=== PATIENT | female | born 1965 | race Two or more races ===

== ENCOUNTER 2024-07-09 14:24 | Inpatient (IN) | payer OTHER ==
[~2024-07-09] VITALS: Ht 152.4 cm; Wt 76.2 kg
--- NOTE | 2024-07-09 14:53 | ED.PDOC ---
HPI (NEURO) HPI Comments 59 Y F brought in by son with PMHX of CVA presents to ED with CC of left sided facial drop. Patient's son relays, that he was driving patient back up from [place] when he noticed a left sided facial drop and right arm weakness at 1400 today (07/09/23). Patient's son states, that patient did have a stroke last week. Patient denies headache, fatigue, slurred speech, or loss of vision. 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: Denies all ACCOUNT COORDINATOR Hx Family History Family History: Unknown Social History Smoker: Non-Smoker Alcohol: Denies ETOH Use Drugs: Denies Drug Use Lives In: Home Constitutional: denies: chills, diaphoresis, fatigue, fever, malaise, sweats, weakness, others EENTM: denies: blurred vision, double vision, ear bleeding, ear discharge, ear drainage, ear pain, ear ringing, eye pain, eye redness, hearing loss, mouth pain, mouth swelling, nasal discharge, nose bleeding, nose congestion, nose pain, photophobia, tearing, throat pain, throat swelling, voice changes, others Respiratory: denies: cough, hemoptysis, orthopnea, SOB at rest, shortness of breath, SOB with excertion, stridor, wheezing, others Cardiovascular: denies: chest pain, dizzy spells, diaphoresis, Dyspnea on exertion, edema, irregular heart beat, left arm pain, lightheadedness, palpitations, PND, syncope, others Gastrointestinal: denies: abdomen distended, abdominal pain, blood streaked bowels, constipated, diarrhea, dysphagia, difficulty swallowing, hematemesis, melena, nausea, poor appetite, poor fluid intake, rectal bleeding, rectal pain, vomiting, others Genitourinary: denies: abnormal vagina bleeding, burning, dyspareunia, dysuria, flank pain, frequency, hematuria, incontinence, pain, , vagina discharge, urgency, others Neurological: reports: right sided weakness, others (LEFT SIDED FACIAL DROP); denies: dizziness, fainting, headache, left sided numbness, left sided weakness, numbness, paresthesia, pre-existing deficit, right sided numbness, seizure, speech problems, tingling, tremors, weakness Musculoskeletal: denies: back pain, gout, joint pain, joint swelling, muscle pain, muscle stiffness, neck pain, others Integumetry: denies: bruises, change in color, change in hair/nails, dryness, laceration, lesions, lumps, rash, wounds, others Hematologic/Lymphatic: denies: anemia, blood clots, easy bleeding, easy bruising, swollen glands, others Endocrine: denies: excessive hunger, excessive sweating, excessive thirst, excessive urination, flushing, intolerance to cold, intolerance to heat, unexplained weight gain, unexplained weight loss, others Psychiatric: denies: anxiety, bipolar disorder, depression, hopeless, panic disorder, schizophrenia, sleepless, suicidal, others All Other Systems: Reviewed and Negative Physical Exam General Appearance: Moderate Distress HEENT: Normal ENT Inspection, Pharynx Normal, TMs Normal Neck: Full Range of Motion, Non-Tender, Normal, Normal Inspection Respiratory: Chest Non-Tender, Lungs Clear, No Accessory Muscle Use, No Respiratory Distress, Normal Breath Sounds Cardiovascular: No Edema, No JVD, No Murmur, No Gallop, Normal Peripheral Pulses, Regular Rate/Rhythm Breast Exam: Deferred Gastrointestinal: No Organomegaly, Non Tender, No Pulsatile Mass, Normal Bowel Sounds, Soft Genitalia: Deferred Pelvic: Deferred Rectal: Deferred Extremities: No calf tenderness, Normal capillary refill, Normal inspection, Normal range of motion, Non-tender, No pedal edema Musculoskeletal : Apperance: Normal Neurologic: Alert, whanau support worker II-XII nml as Tested, Motor Weakness (Right-sided upper and lower extremity weakness), Normal Mood, No Sensory Deficits Cerebellar Function: Unable to Test Reflexes: Normal Skin: Dry, Normal Color, Warm Lymphatic: No Adenopathy Was a procedure done? Was a procedure done?: No Differential Diagnosis (SZ) Seizure: N/A CVA: Echols's Palsy, CVA, TIA General Weakness: CVA, TIA X-Ray, Labs, Meds, VS Vital Signs Date Time Temp Pulse Resp B/P (MAP) Pulse Ox O2 Delivery O2 Flow Rate FiO2 07/09/24 18:00 99 17 101/50 (67) 97 07/09/24 17:19 96 18 99 Nasal Cannula* 2 28 07/09/24 17:00 97 17 112/50 (70) 90 07/09/24 16:00 98 17 127/52 (77) 90 07/09/24 15:17 99.5 103 17 126/58 (80) 92 99.5 07/09/24 14:40 104 07/09/24 14:35 98.4 104 20 115/60 (78) 97 Lab Test 07/09/24 15:15 07/09/24 14:33 Range/Units White Blood Count 10.5 4.4-10.8 10^3/uL Red Blood Count 3.61 L 4.0-5.20 10^6/uL Hemoglobin 12.1 L 12.2-16.2 g/dL Hematocrit 36.6 36.0-46.0 % Mean Corpuscular Volume 101.3 H 80.0-100.0 fL Mean Corpuscular Hemoglobin 33.4 H 28.0-32.0 pg Mean Corpuscular Hemoglobin Concent 33.0 32.0-36.0 g/dL Red Cell Distribution Width 19.4 H 11.8-14.3 % Platelet Count 318 140-450 10^3/uL Mean Platelet Volume 7.7 6.9-10.8 fL Neutrophils (%) (Auto) 89.2 H 37.0-80.0 % Lymphocytes (%) (Auto) 5.8 L 10.0-50.0 % Monocytes (%) (Auto) 3.6 0.0-12.0 % Eosinophils (%) (Auto) 1.1 0.0-7.0 % Basophils (%) (Auto) 0.3 0.0-2.0 % Neutrophils # (Auto) 9.4 H 1.6-8.6 10 ^3/uL Lymphocytes # (Auto) 0.6 0.4-5.4 10 ^3/uL Monocytes # (Auto) 0.4 0-1.3 10 ^3/uL Eosinophils # (Auto) 0.1 0-0.8 10 ^3/uL Basophils # (Auto) 0 0-0.2 10 ^3/uL Nucleated Red Blood Cells 0.1 % Prothrombin Time 13.5 H 9.3-11.8 sec Prothrombin Time INR 1.31 H 0.9-1.15 Activated Partial Thromboplast Time 30.3 24.5-34.5 SEC Sodium Level 137 136-145 mmol/L Potassium Level 5.1 3.5-5.1 mmol/L Chloride Level 106 98-107 mmol/L Carbon Dioxide Level 23 20-31 mmol/L Anion Gap 8 5-15 Blood Urea Nitrogen 26 H 9-23 mg/dL Creatinine 1.20 H 0.550-1.02 mg/dL Glomerular Filtration Rate Calc 52 >90 mL/min BUN/Creatinine Ratio 21.7 H 10.0-20.0 Serum Glucose 228 H 74-106 mg/dL Calcium Level 8.7 8.7-10.4 mg/dL Magnesium Level 2.0 1.6-2.6 mg/dL Total Bilirubin 0.4 0.2-1.0 mg/dL Aspartate Amino Transferase (AST) 145 H 13-40 U/L Alanine Aminotransferase (ALT) 180 H 7-40 U/L Alkaline Phosphatase 194 H 46-116 U/L Troponin I High Sensitivity 6 </=34 ng/L B-Type Natriuretic Peptide 32.50 0-100 pg/mL Total Protein 5.4 L 5.7-8.2 g/dL Albumin 3.7 3.2-4.8 g/dL POC Glucose 213 H 70-106 mg/dl CT HEAD CVA: FINDINGS: There is no evidence of acute intracranial hemorrhage, mass, mass effect midline shift. There is no hydrocephalus or extra-axial fluid collection. There is a tiny hypodense focus in the right basal ganglia likely a small chronic lacunar infarct. There are patchy hypodense changes in the supratentorial white matter compatible with chronic small-vessel ischemic changes. Daley-white matter differentiation otherwise appears maintained. The visualized paranasal sinuses and mastoid air cells are clear. The calvarium is intact. IMPRESSION: 1. No acute intracranial process. HS:Y ATED BY: ROGER OCAMPO MD DICTATED DATE/TIME: 07/09/241503 SIGNED BY: ROGER OCMAPO MD SIGNED DATE/TIME: 01/15/25 1504 CC: CXR: FINDINGS: Lines and Tubes: None Lungs: No focal consolidation. Pleura: No effusion. No pneumothorax. Cardiomediastinal contours: Unremarkable Bones: No acute osseous abnormality. IMPRESSION: No acute cardiopulmonary disease. ATED BY: EVELIO MADRID MD DICTATED DATE/TIME: 07/09/24 150 SIGNED BY: EVELIO MADRID MD SIGNED DATE/TIME: 07/09/24 1504 CC: At this time, the patient is being admitted to the hospitalist A neurology consult has also been obtained. The patient's CBC is within normal limits The chemistry panel is within normal limits The INR is 1.31 The neurologist did recommend that we hold the Eliquis at this time. There is a recommendation that a CT angio of the head and neck be done but the hospitalist we will continue to consult with a neurologist for that decision At this time, the patient was being admitted Images Reviewed?: Images reviewed and evaluated by me Time of 1ST Reevaluation: 15:05 Reevaluation 1ST: Unchanged Patient Education/Counseling: Diagnosis, Treatment, Prognosis Family Education/Counseling: Diagnosis, Treatment, Prognosis Departure 1 Departure Time of Disposition: 18:32 Impression: Primary Impression: Right sided weakness Disposition: 09 ADMITTED INPATIENT Admit to: Med Surg Condition: Fair Critical Care Note Critical Care Time?: Yes (45 min-critical care time only) Stability Stability form required: Yes Unstable for transfer: ED Physician Assesment (Clinical assesment) Heart Score Heart Score: Heart Score Response (Comments) Value History N/A 0 EKG N/A 0 Age N/A 0 Risk Factors N/A 0 Troponin N/A 0 Total 0 I personally scribed for JOSELITO HENSLEY MD ([email or web address]) on 07/09/24 at 14:52. Electronically submitted by Negar Mendez ([email or web address]). I personally scribed for JOSELITO HENSLEY MD ([email or web address]) on 07/09/24 at 15:56. Electronically submitted by Negar Mendez ([email or web address]). I personally scribed for JOSELITO HENSLEY MD ([email or web address]) on 07/09/24 at 15:56. Electronically submitted by Negar Mendez [email or web address]). JOSELITO HENSLEY MD Jul 09, 2024 14:52
--- NOTE | 2024-07-09 15:04 | DVHINCON2 ---
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 Son at bedside says she was in the car and seemed to have her R arm contracted? Then after stepping out of the car it was noted she had R sided weakness. On ASA 81mg and Eliquis 5mg BID at home. Last Known Normal: - I have collected independent history specific to time last normal or last known well. We have collaborated with the provider and at this time, we have the most current timeline with the information that is available. 1PM # Scores Time of exam and NIHSS (): 07/09/2024, 14:57 Level of Consciousness 1a: [0] = Alert; keenly responsive LOC Questions 1b: [0] = Answers both questions correctly LOC Commands 1c: [0] = Performs both tasks correctly Best Gaze 2: [0] = Normal Visual 3: [0] = No visual loss Facial Palsy 4: [1] = Minor paralysis Motor Arm Left 5a: [0] = No drift Motor Arm Right 5b: [1] = Drift Motor Leg Left 6a: [0] = No drift Motor Leg Right 6b: [1] = Drift Limb Ataxia 7: [0] = Absent Sensory 8: [1] = Ywvz-dr-oeqtoqgx sensory loss Best Language 9: [0] = No aphasia Dysarthria 10: [1] = Ihqy-rd-wrbnlfzb dysarthria Extinction and Inattention 11: [0] = No abnormality NIHSS Total: 5 # Assessment Impression: - Ischemic Stroke (Acute) # Plan Thrombolytic/Intervention: Possible IA candidate Thrombolytic Exclusion (< 3 hour window): - on anticoagulation - stroke within 3 months Possible IA Candidate: - CTA pending - If CTA shows large vessel occlusion, notify neurology and/or neuro- interventional team, per hospital protocol. Blood Pressure Management: Use labetolol 10-20mg IV PRN or nicardipine gtt to maintain BP parameters Target Blood Pressure: - SBP < 220 - DBP < 120 Imaging: (urgency: STAT): - CT Angiogram Head and CT Angiogram Neck AND call back with results if abnormal Imaging: (urgency: routine): - MRI Brain without contrast Diagnostic Test: - echo with bubble study Telemetry for a fib monitoring Therapy/Evaluation: - PT/OT evaluation - speech/swallow consultation - NPO until swallow evaluation Medication: - aspirin 81 mg daily atorvastatin 80mg daily, goal LDL <70 Hold DOAC until obtaining MRI brain, timing of restart depending on size of infarct Other: - If patient has any neurological deterioration please call me back immediately Additional Recommendations: - Hydrate with NS - Permissive HTN for next 24-48 hours, then gradual control by no more than 15% daily monitoring for neurological stability - Avoid dehydration and relative hypotension - Risk factor modification, including smoking cessation and alcohol moderation if appropriate - Monitor glucose and correct as needed - If cryptogenic non-lacunar stroke on MRI, obtain outpatient cardiac monitoring for a fib - Call back for neurological deterioration Disposition: admit # Logistics Attestation of consult completion: The patient is located at: [facility]. Facility staff participated in the visit. I performed this telemedicine visit from my offsite office utilizing interactive 2 way audio and visual telecommunication technology. Total time spent in telemedicine encounter: I spent 26 minutes reviewing clinical data and/or imaging, obtaining history, examining the patient, communicating with the onsite care team, and in preparation of this report. # Demographics First Name: MARLENE Last Name: WILDA MARLEY Facility: [facility] Allergies: Coded Allergies: NO KNOWN ALLERGIES (Unverified , 07/09/24) Physical Examination General Examination: Last Vital sign Vital Signs Date Time Temp Pulse Resp B/P (MAP) Pulse Ox O2 Delivery O2 Flow Rate FiO2 07/09/24 14:40 104 07/09/24 14:35 98.4 20 115/60 (78) 97 General: General: No apparent distress, appears comfortable. Cooperative. Neurological Examination: Neurological Examination: Mental Status: Cranial Nerves: Motor Examination: Reflexes: Sensory: Coordination: Gait: Labs: Labs: Laboratory Tests Test 07/09/24 14:33 Range/Units POC Glucose 213 H 70-106 mg/dl Assessment/Plan Assessment/Plan [facility] # Demographics Consult Type: Acute Stroke Level 1 (0-4.5 hrs) Patient Location: Emergency Room First Name: MARLENE Last Name: WILDA MARLEY Date of : 1965 Age: 59 Gender: Female Facility: [facility] Time of Initial Page ( Time): 07/09/2024, 14:42 Time of Return Call ( Time): 07/09/2024, 14:43 # HPI History: 59yof with previous stroke (1 week ago as per son, at OSH), DM, 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 Son at bedside says she was in the car and seemed to have her R arm contracted? Then after stepping out of the car it was noted she had R sided weakness. On ASA 81mg and Eliquis 5mg BID at home. Last Known Normal: - I have collected independent history specific to time last normal or last known well. We have collaborated with the provider and at this time, we have the most current timeline with the information that is available. 1PM # Scores Time of exam and NIHSS (): 07/09/2024, 14:57 Level of Consciousness 1a: [0] = Alert; keenly responsive LOC Questions 1b: [0] = Answers both questions correctly LOC Commands 1c: [0] = Performs both tasks correctly Best Gaze 2: [0] = Normal Visual 3: [0] = No visual loss Facial Palsy 4: [1] = Minor paralysis Motor Arm Left 5a: [0] = No drift Motor Arm Right 5b: [1] = Drift Motor Leg Left 6a: [0] = No drift Motor Leg Right 6b: [1] = Drift Limb Ataxia 7: [0] = Absent Sensory 8: [1] = Tcvx-ct-luwxgmsi sensory loss Best Language 9: [0] = No aphasia Dysarthria 10: [1] = Pnso-gt-tzbtvmln dysarthria Extinction and Inattention 11: [0] = No abnormality NIHSS Total: 5 # Assessment Impression: - Ischemic Stroke (Acute) # Plan Thrombolytic/Intervention: Possible IA candidate Thrombolytic Exclusion (< 3 hour window): - on anticoagulation - stroke within 3 months Possible IA Candidate: - CTA pending - If CTA shows large vessel occlusion, notify neurology and/or neuro- interventional team, per hospital protocol. Blood Pressure Management: Use labetolol 10-20mg IV PRN or nicardipine gtt to maintain BP parameters Target Blood Pressure: - SBP < 220 - DBP < 120 Imaging: (urgency: STAT): - CT Angiogram Head and CT Angiogram Neck AND call back with results if abnormal Imaging: (urgency: routine): - MRI Brain without contrast Diagnostic Test: - echo with bubble study Telemetry for a fib monitoring Therapy/Evaluation: - PT/OT evaluation - speech/swallow consultation - NPO until swallow evaluation Medication: - aspirin 81 mg daily atorvastatin 80mg daily, goal LDL <70 Hold DOAC until obtaining MRI brain, timing of restart depending on size of infarct Other: - If patient has any neurological deterioration please call me back immediately Additional Recommendations: - Hydrate with NS - Permissive HTN for next 24-48 hours, then gradual control by no more than 15% daily monitoring for neurological stability - Avoid dehydration and relative hypotension - Risk factor modification, including smoking cessation and alcohol moderation if appropriate - Monitor glucose and correct as needed - If cryptogenic non-lacunar stroke on MRI, obtain outpatient cardiac monitoring for a fib - Call back for neurological deterioration Disposition: admit # Logistics Attestation of consult completion: The patient is located at: [facility]. Facility staff participated in the visit. I performed this telemedicine visit from my offsite office utilizing interactive 2 way audio and visual telecommunication technology. Total time spent in telemedicine encounter: I spent 26 minutes reviewing clinical data and/or imaging, obtaining history, examining the patient, communicating with the onsite care team, and in preparation of this report. # Demographics First Name: MARLENE Last Name: WILDA MARLEY Facility: [facility] Plan discussed with: Patient, Heriberto ZEESHAN MURPHY MD Jul 09, 2024 15:04
--- NOTE | 2024-07-09 15:05 | DVH ---
EXAM: XY CHEST XRAY 1 VIEW Indication: Pain Technique: Single frontal view of the chest was obtained Comparison: None FINDINGS: Lines and Tubes: None Lungs: No focal consolidation. Pleura: No effusion. No pneumothorax. Cardiomediastinal contours: Unremarkable Bones: No acute osseous abnormality. IMPRESSION: No acute cardiopulmonary disease.
--- NOTE | 2024-07-09 15:06 | DVH ---
EXAM: CT STROKE CTH HISTORY: RIGHT ARM WEAKNESS COMPARISON: None TECHNIQUE: Axial images of the head were obtained and reformatted in coronal and sagittal planes. All CT scans at this medical facility are performed using dose modulation techniques as appropriate t o a performed exam including the following: Automated exposure control was utilized; adjustment of th e MA and/or KV according to patient size; and use of iterative reconstruction technique. CT Dose: CTDI volume is 51 mGy. Dose-length product is 814 mGy*cm FINDINGS: There is no evidence of acute intracranial hemorrhage, mass, mass effect midline shift. There is no h ydrocephalus or extra-axial fluid collection. There is a tiny hypodense focus in the right basal zheng glia likely a small chronic lacunar infarct. There are patchy hypodense changes in the supratentoria l white matter compatible with chronic small-vessel ischemic changes. Daley-white matter differentiati on otherwise appears maintained. The visualized paranasal sinuses and mastoid air cells are clear. The calvarium is intact. IMPRESSION: 1. No acute intracranial process. HS:Y
--- NOTE | 2024-07-09 15:19 | ECG ---
[facility] Test Date: 2024-07-09 Test Time: 14:40:29 Pat Name: MARLENE LUNDBERGADepartment: ER Room: 0272T Gender: F Dietary Service Aide: MARCELA : 1965 Requested By: JOSELITO HENSLEY Order Number: [id number] Reading MD: Dimas Parker Measurements Intervals [place] Rate: 104 P: 52 SD: 138 QRS: 82 QRSD: 70 T: -59 QT: 333 QTc: 438 Interpretive Statements Sinus tachycardia Borderline right axis deviation Low voltage, precordial leads Borderline repolarization abnormality Baseline wander in lead(s) V1,V3 Electronically Signed On 07-13-2024 15:39:37 PST by Dimas Parker Please click the below link to view image of tracing.
[2024-07-09 15:35] LABS: Basophils # (auto) 0 10 ^3/uL (0-0.2); Basophils % (auto) 0.3 % (0.0-2.0); Eosinophils # (auto) 0.1 10 ^3/uL (0-0.8); Eosinophils % (auto) 1.1 % (0.0-7.0); Hematocrit 36.6 % (36.0-46.0); Hemoglobin 12.1 g/dL (12.2-16.2); Lymphocytes # (auto) 0.6 10 ^3/uL (0.4-5.4); Lymphocytes % (auto) 5.8 % (10.0-50.0); Mean Corpuscular Hemoglobin 33.4 pg (28.0-32.0); Mean Corpuscular Volume 101.3 fL (80.0-100.0); Monocytes # (auto) 0.4 10 ^3/uL (0-1.3); Monocytes % (auto) 3.6 % (0.0-12.0); Neutrophils # (auto) 9.4 10 ^3/uL (1.6-8.6); Neutrophils % (auto) 89.2 % (37.0-80.0); Nucleated Red Blood Cells % 0.1 %; Platelet Count (auto) 318 10^3/uL (140-450); Red Blood Cells 3.61 10^6/uL (4.0-5.20); Red Cell Distribution Width 19.4 % (11.8-14.3); White Blood Cell 10.5 10^3/uL (4.4-10.8)
[2024-07-09 15:44] LABS: Albumin 3.7 g/dL (3.2-4.8); Anion Gap 8 (5-15); BUN/Creatinine Ratio 21.7 (10.0-20.0); Calcium 8.7 mg/dL (8.7-10.4); Carbon Dioxide 23 mmol/L (20-31); Chloride 106 mmol/L (98-107); Sodium 137 mmol/L (136-145)
[2024-07-09 15:45] LABS: Bilirubin, Total 0.4 mg/dL (0.2-1.0)
[2024-07-09 15:53] LABS: Alanine Aminotransferase 180 U/L (7-40); Alkaline Phosphatase 194 U/L (46-116); Aspartate Aminotransferase 145 U/L (13-40); Blood Urea Nitrogen 26 mg/dL (9-23); Glucose 228 mg/dL (74-106); Potassium 5.1 mmol/L (3.5-5.1); Total Protein 5.4 g/dL (5.7-8.2)
[2024-07-09 15:57] LABS: INR 1.31 (0.9-1.15); Partial Thromboplastin Time 30.3 SEC (24.5-34.5); Prothrombin Time 13.5 sec (9.3-11.8)
[2024-07-09 17:19] VITALS: PULSE 96; RESP 18; O2SAT 99
[2024-07-09] MEDS ORDERED: ONDANSETRON HCL 4 MG/2 ML VIAL IV PRN (18:30)
[2024-07-09] MEDS ORDERED: DEXTROSE (50%) 50ML SYRG IV PRN (18:30)
[2024-07-09 19:45] VITALS: PULSE 99; RESP 16; O2SAT 94
[2024-07-09] MEDS: ATORVASTATIN 20 MG TAB PO SCH (21:35)
[2024-07-09] MEDS: ACCU-CHEK COMFORT CURVE STRIP VI SCH (21:36)
[2024-07-09] MEDS: InsuLIN REG 1unit/0.01ml Soln (100units/ml) SC SCH (21:46)
--- NOTE | 2024-07-09 21:50 | DVHHP2 ---
History of Present Illness Reason for Visit: Right arm weakness History of Present Illness 59-year-old female presents for evaluation of right. Patient reports waking up from her nap today around 2:00 p.m. and was noted by her son to have right arm weakness in mild left facial droop. Patient states the symptoms have improved since then. No facial droop noted. Right Arm is still mildly weaker than the left. Denies headache or blurred vision. No slurred speech noted. Past Medical History Dyslipidemia, hypertension, diabetes mellitus, CVA Past Surgical History Right knee surgery Family History Noncontributory Smoke: No ALCOHOL: none Drugs: None Lives: with Family Review of Systems Review of Systems Review of systems are currently negative otherwise addressed in HPI. Allergies: Coded Allergies: NO KNOWN ALLERGIES (Unverified , 07/09/24) Medications Current Medications Medications Dose Ordered Sig/Kelsey Route Start Time Stop Time Status Last Admin Dose Admin Aspirin 81 mg DAILY PO 07/10/24 10:00 Atorvastatin Calcium 80 mg HS PO 07/09/24 22:00 07/09/24 21:35 80 MG Furosemide 40 mg DAILY PO 07/10/24 10:00 Empaglifozin 10 mg DAILY PO 07/10/24 10:00 Diagnostic Test (Pha) 1 strip ACHS 07/09/24 22:00 07/09/24 21:36 1 STRIP Insulin Human Regular ACHS SC 07/09/24 22:00 Dextrose 50 ml UD PRN IV 07/09/24 18:30 Ondansetron HCl 4 mg Q4HP PRN IV 07/09/24 18:30 Exam Vital Signs Vital Signs Date Time Temp Pulse Resp B/P (MAP) Pulse Ox O2 Delivery O2 Flow Rate FiO2 07/09/24 20:00 98.7 95 17 109/53 (71) 98 98.7 07/09/24 19:45 Nasal Cannula* 2 28 Exam Gen: 59-year-old female in mild distress, obese Skin: Warm, dry, normal color and texture, no rash. HEENT: Normocephalic atraumatic, mucous membranes moist and pink. Neck: Cervical and supraclavicular nodes normal without enlargement, trachea is midline, thyroid gland is normal without masses. Pulmonary: Clear to auscultation and percussion bilaterally. Cardiac: Regular rate and rhythm. No murmur Abdomen: Soft, nontender, nondistended, bowel sounds present all 4 quadrants, no guarding, no rigidity, no organomegaly. Extremities: No cyanosis, clubbing, no edema Neuro: Cranial nerves II through XII grossly intact, normal affect and speech, RUE 3/5, RLE5/5, LUE5/5/ LLE 5/5 Labs/Xrays ORDERING PHYSICIAN: JOSELITO HENSLEY MD PROCEDURE(s): CXR1 - CHEST XRAY 1 VIEW REASON: R ARM WEAK ORDER NUMBER(s): [id number], ACCESSION NUMBER(s): [id number] EXAM: XY CHEST XRAY 1 VIEW Indication: Pain Technique: Single frontal view of the chest was obtained Comparison: None FINDINGS: Lines and Tubes: None Lungs: No focal consolidation. Pleura: No effusion. No pneumothorax. Cardiomediastinal contours: Unremarkable Bones: No acute osseous abnormality. IMPRESSION: No acute cardiopulmonary disease. ATED BY: EVELIO MADRID MD DICTATED DATE/TIME: 07/09/24 1504 SIGNED BY: EVELIO MADRID MD SIGNED DATE/TIME: 07/09/24 1504 ORDERING PHYSICIAN: JOSELITO HENSLEY MD PROCEDURE(s): CTH - STROKE CTH REASON: RIGHT ARM WEAKNESS ORDER NUMBER(s): [id number], ACCESSION NUMBER(s): [id number] EXAM: CT STROKE CTH HISTORY: RIGHT ARM WEAKNESS COMPARISON: None TECHNIQUE: Axial images of the head were obtained and reformatted in coronal and sagittal planes. All CT scans at this medical facility are performed using dose modulation techniques as appropriate to a performed exam including the following: Automated exposure control was utilized; adjustment of the MA and/or KV according to patient size; and use of iterative reconstruction technique. CT Dose: CTDI volume is 51 mGy. Dose-length product is 814 mGy*cm FINDINGS: There is no evidence of acute intracranial hemorrhage, mass, mass effect midline shift. There is no hydrocephalus or extra-axial fluid collection. There is a tiny hypodense focus in the right basal ganglia likely a small chronic lacunar infarct. There are patchy hypodense changes in the supratentorial white matter compatible with chronic small-vessel ischemic changes. Daley-white matter differentiation otherwise appears maintained. The visualized paranasal sinuses and mastoid air cells are clear. The calvarium is intact. IMPRESSION: 1. No acute intracranial process. HS:Y Labs Test 07/09/24 15:15 07/09/24 14:33 Range/Units White Blood Count 10.5 4.4-10.8 10^3/uL Red Blood Count 3.61 L 4.0-5.20 10^6/uL Hemoglobin 12.1 L 12.2-16.2 g/dL Hematocrit 36.6 36.0-46.0 % Mean Corpuscular Volume 101.3 H 80.0-100.0 fL Mean Corpuscular Hemoglobin 33.4 H 28.0-32.0 pg Mean Corpuscular Hemoglobin Concent 33.0 32.0-36.0 g/dL Red Cell Distribution Width 19.4 H 11.8-14.3 % Platelet Count 318 140-450 10^3/uL Mean Platelet Volume 7.7 6.9-10.8 fL Neutrophils (%) (Auto) 89.2 H 37.0-80.0 % Lymphocytes (%) (Auto) 5.8 L 10.0-50.0 % Monocytes (%) (Auto) 3.6 0.0-12.0 % Eosinophils (%) (Auto) 1.1 0.0-7.0 % Basophils (%) (Auto) 0.3 0.0-2.0 % Neutrophils # (Auto) 9.4 H 1.6-8.6 10 ^3/uL Lymphocytes # (Auto) 0.6 0.4-5.4 10 ^3/uL Monocytes # (Auto) 0.4 0-1.3 10 ^3/uL Eosinophils # (Auto) 0.1 0-0.8 10 ^3/uL Basophils # (Auto) 0 0-0.2 10 ^3/uL Nucleated Red Blood Cells 0.1 % Prothrombin Time 13.5 H 9.3-11.8 sec Prothrombin Time INR 1.31 H 0.9-1.15 Activated Partial Thromboplast Time 30.3 24.5-34.5 SEC Sodium Level 137 136-145 mmol/L Potassium Level 5.1 3.5-5.1 mmol/L Chloride Level 106 98-107 mmol/L Carbon Dioxide Level 23 20-31 mmol/L Anion Gap 8 5-15 Blood Urea Nitrogen 26 H 9-23 mg/dL Creatinine 1.20 H 0.550-1.02 mg/dL Glomerular Filtration Rate Calc 52 >90 mL/min BUN/Creatinine Ratio 21.7 H 10.0-20.0 Serum Glucose 228 H 74-106 mg/dL Calcium Level 8.7 8.7-10.4 mg/dL Magnesium Level 2.0 1.6-2.6 mg/dL Total Bilirubin 0.4 0.2-1.0 mg/dL Aspartate Amino Transferase (AST) 145 H 13-40 U/L Alanine Aminotransferase (ALT) 180 H 7-40 U/L Alkaline Phosphatase 194 H 46-116 U/L Troponin I High Sensitivity 6 </=34 ng/L B-Type Natriuretic Peptide 32.50 0-100 pg/mL Total Protein 5.4 L 5.7-8.2 g/dL Albumin 3.7 3.2-4.8 g/dL POC Glucose 213 H 70-106 mg/dl Assessment/Plan Assessment/Plan Assessment Rule out CVA Right-sided weakness Diabetes mellitus Hypertension Plan Ad[place] the [place] [facility] [place] Nephrology consultation MRI of the brain pending Resume home medications Continue treatment per orders. Plan discussed with: Patient My Orders Orders - ADELIA JACKSON Procedure Category Date Status Time Aspirin Tablet PHA 07/10/24 In Process 10:00 Atorvastatin (Lipitor) PHA 07/09/24 In Process 22:00 Furosemide Tablet PHA 07/10/24 In Process (Lasix Tablet) 10:00 Empagliflozin PHA 07/10/24 In Process (Jardiance) 10:00 Basic Metabolic Panel LAB 07/10/24 Verified 04:00 Glucose Blood PHA 07/09/24 In Process (Accu-Chek Comfort 22:00 Insulin R (Human) PHA 07/09/24 In Process (Insulin R) 22:00 Dextrose 50% Syringe PHA 07/09/24 In Process 18:30 Admit ADMIT 07/09/24 Transmitted 18:28 Ondansetron Hcl PHA 07/09/24 In Process (Zofran) 18:30 Complete Blood Count LAB 07/10/24 Verified 04:00 Cardiac DIET 07/09/24 Transmitted Diet-2gna,Lofat,Lochol Dinner Condition: Fair MARY 07/09/24 In Process 18:28 Bedrest With Bathroom MARY 07/09/24 In Process Privileg 18:28 Brain Head Wo Contrast MRI 07/09/24 Logged 18:28 Date of Service: Jul 09, 2024 Billing Provider: ADELIA JACKSON Common Visit Codes: [id number] INP/OBS CARE (HIGH) ADELIA JACKSON Jul 09, 2024 21:50
[2024-07-09 23:45] VITALS: BP 127/91; PULSE 90; RESP 18; TEMP 100.2; O2SAT 99
[2024-07-10] VITALS (8 sets, daily range): BP systolic 98–144; BP diastolic 49–91; PULSE 87–98; RESP 18–19; TEMP 97.7–98.9; O2SAT 96–99
[2024-07-10 08:08] LABS: Basophils # (auto) 0 10 ^3/uL (0-0.2); Basophils % (auto) 0.1 % (0.0-2.0); Eosinophils # (auto) 0.1 10 ^3/uL (0-0.8); Eosinophils % (auto) 1.6 % (0.0-7.0); Hematocrit 32.5 % (36.0-46.0); Hemoglobin 10.8 g/dL (12.2-16.2); Lymphocytes # (auto) 0.5 10 ^3/uL (0.4-5.4); Lymphocytes % (auto) 6.4 % (10.0-50.0); Mean Corpuscular Hemoglobin 33.4 pg (28.0-32.0); Mean Corpuscular Hgb Conc. 33.1 g/dL (32.0-36.0); Monocytes # (auto) 0.4 10 ^3/uL (0-1.3); Monocytes % (auto) 4.1 % (0.0-12.0); Neutrophils # (auto) 7.5 10 ^3/uL (1.6-8.6); Neutrophils % (auto) 87.8 % (37.0-80.0); Nucleated Red Blood Cells % 0.2 %; Platelet Count (auto) 265 10^3/uL (140-450); Red Blood Cells 3.22 10^6/uL (4.0-5.20); Red Cell Distribution Width 19.8 % (11.8-14.3); White Blood Cell 8.5 10^3/uL (4.4-10.8)
[2024-07-10 08:20] LABS: Potassium 3.9 mmol/L (3.5-5.1); Sodium 140 mmol/L (136-145)
[2024-07-10 08:21] LABS: Anion Gap 5 (5-15); Carbon Dioxide 28 mmol/L (20-31)
[2024-07-10 08:26] LABS: BUN/Creatinine Ratio 16.1 (10.0-20.0); Blood Urea Nitrogen 15 mg/dL (9-23); Glucose 82 mg/dL (74-106)
[2024-07-10 08:27] LABS: Calcium 8.7 mg/dL (8.7-10.4); Chloride 107 mmol/L (98-107)
--- NOTE | 2024-07-10 08:59 | DVH ---
EXAMINATION: MRI BRAIN HEAD WO CONTRAST INDICATION: r/o cva COMPARISON: CT scan of the head performed on 07/09/2024. TECHNIQUE: Multiplanar, multisequence magnetic resonance imaging of the brain was performed without the use of i ntravenous contrast. FINDINGS: There is restricted diffusion in the left and right parietal lobes and posterior left frontal lobe co nsistent with acute cortical infarcts. No acute intracranial hemorrhage. No mass effect. There is periventricular/deep white matter T2/FLAIR hyperintensity is nonspecific, but most commonly associated with chronic microvascular disease. The ventricles and sulci are normal in size for age. Clear basal cisterns. Flow voids in the major intracranial vessels are maintained. No abnormality of the orbits. Mucosal thickening in the maxillary sinuses. No abnormality of the visualized osseous structures and extracranial soft tissues. IMPRESSION: 1. Acute cortical infarcts in the bilateral parietal and left frontal lobe.
--- NOTE | 2024-07-10 09:34 | DVHINCON2 ---
Date of service: Jul 10, [address] Kessler Reason for Consultation Right arm weakness History of Present Illness Ms. Srinivasan Le is a 59 years old right-handed female with a history of hypertension, diabetes, dyslipidemia, obesity, chronic stroke, the patient came to the hospital with a chief company of left arm weakness. At this time, she is alert, fully oriented, she provided the following history with our bilingual nursing staff help On 07/09/2024, the patient was developed left arm weakness, but she denies facial and leg weakness, she had no chest pain, headache, or vision changes, in the hospital, her MR brain scan confirmed multiple strokes in different arterial territories About one week ago, the patient was had left arm weakness and she was seen in the [facility] and was said to have stroke she has a good recovery About 1.5 years ago, she developed left arm weakness, the patient was seen in [facility] and was said to have stroke, she has good recovery At home, she takes aspirin 81 mg daily, and a cholesterol medication, according to our record, Lipitor She does not know but she thinks she snores, her sleeps non refreshing, she feels tired and has sleepiness during the daytime WBC/HB/PLT/MCV, 07/10/2024: 8.5/10.8/265/101 PT/INR/PTT, 07/09/2024: 13.5/1.31/30.3 BUN/CR, 07/09/2024: 26/1.2 TBI/AST/ALT/AP, 07/09/2024: 0.4/145/180/194 CT head, 07/09/2024: No acute intracranial process MRI head, 07/10/2024: Acute cortical infarcts in the bilateral parietal and left frontal lobe. Past Medical History Hypertension, diabetes, dyslipidemia, stroke, obesity Past Surgical History Right knee surgery Family History: Cardiovascular disease G8 FATHER Diabetes mellitus G8 MOTHER Hypercholesterolemia Hypertension G8 MOTHER G8 FATHER Family History Hypertension, Diabetes, dyslipidemia, coronary artery disease, heart attack Social History She has no history of smoking, alcohol or drug abuse Allergies: Coded Allergies: NO KNOWN ALLERGIES (Unverified , 07/09/24) Home Meds Unable to Obtain Active Prescriptions or Reported Meds Current Medications Current Medications Medications (Trade) Dose Ordered Sig/Kelsey Route PRN Reason Start Time Stop Time Status Last Admin Aspirin 81 mg DAILY PO 07/10/24 10:00 Atorvastatin Calcium (Lipitor) 80 mg HS PO 07/09/24 22:00 07/09/24 21:35 Furosemide (Lasix Tablet) 40 mg DAILY PO 07/10/24 10:00 Empaglifozin (Jardiance) 10 mg DAILY PO 07/10/24 10:00 Diagnostic Test (Pha) (Accu-Chek Comfort Curve T) 1 strip ACHS 07/09/24 22:00 07/10/24 06:19 Insulin Human Regular (InsuLIN R) ACHS SC 07/09/24 22:00 07/09/24 21:46 Dextrose 50 ml UD PRN IV Blood Sugar LESS THAN 60 07/09/24 18:30 Ondansetron HCl (Zofran) 4 mg Q4HP PRN IV NAUSEA / VOMITING 07/09/24 18:30 Review of Systems As above, the other systems are negative Vital Signs Vital Signs Date Time Temp Pulse Resp B/P (MAP) Pulse Ox O2 Delivery O2 Flow Rate FiO2 07/10/24 05:00 98.9 89 19 118/53 (74) 97 98.9 07/10/24 01:32 Nasal Cannula* 2 28 Physical Exam GENERAL EXAM: General: the patient is well developed and nourished. No acute distress. HEENT: Normocephalic, neck is supple, no carotid bruits. No mass RESPIRATORY: Normal respiratory effort with symmetrical lung expansion. Lungs clear to auscultation. CARDIOVASCULAR: Regular rate and rhythm with no murmurs. S1, S2. ABDOMEN: Soft, nontender, normal bowel sound NEUROLOGICAL: MENTAL STATUS: Awake and alert. Oriented to person, place, time and general circumstances. Able to give personal history. SPEECH, LANGUAGE, HIGHER CORTICAL FUNCTION: no aphasia or dysathria. CRANIAL NERVES: #2: Intact visual lizarraga to confrontation. The optic discs were sharp #3,4,6: Pupils are equal, round and reactive. EOMs full and conjugate. No nystagmus. #5: Facial sensation intact in all three divisions bilaterally. Mandibular strength intact. #7: Facial muscles symmetrical and strength intact. #8: Hearing grossly normal to voice. #9,10: Uvula and soft palate rise in the midline. Swallow and voice are normal. #11: Trapezius and sternomastoid strength intact bilaterally. #12: Tongue midline. No fasciculations or atrophy. SENSATION: Sensation to touch and pinprick is normal. MOTOR: Normal tone in the upper and lower extremity. Normal muscle bulk. No fasciculations. No abnormal movements or posturing. Muscle strength of the major groups in the right extremities is 5/5. Muscle strength of the major groups in the left extremities is 4/5 with left arm drift. REFLEXES: Deep tendon reflexes normal and symmetrical. No pathological reflexes. CEREBELLAR/COORDINATION: Finger to nose is normal bilaterally. GAIT/STATION: deferred. Labs/Diagnostic Data Labs Test 07/10/24 07:05 07/10/24 06:06 07/09/24 15:15 Range/Units White Blood Count 8.5 4.4-10.8 10^3/uL Red Blood Count 3.22 L 4.0-5.20 10^6/uL Hemoglobin 10.8 L 12.2-16.2 g/dL Hematocrit 32.5 #L 36.0-46.0 % Mean Corpuscular Volume 101.0 H 80.0-100.0 fL Mean Corpuscular Hemoglobin 33.4 H 28.0-32.0 pg Mean Corpuscular Hemoglobin Concent 33.1 32.0-36.0 g/dL Red Cell Distribution Width 19.8 H 11.8-14.3 % Platelet Count 265 140-450 10^3/uL Mean Platelet Volume 7.8 6.9-10.8 fL Neutrophils (%) (Auto) 87.8 H 37.0-80.0 % Lymphocytes (%) (Auto) 6.4 L 10.0-50.0 % Monocytes (%) (Auto) 4.1 0.0-12.0 % Eosinophils (%) (Auto) 1.6 0.0-7.0 % Basophils (%) (Auto) 0.1 0.0-2.0 % Neutrophils # (Auto) 7.5 1.6-8.6 10 ^3/uL Lymphocytes # (Auto) 0.5 0.4-5.4 10 ^3/uL Monocytes # (Auto) 0.4 0-1.3 10 ^3/uL Eosinophils # (Auto) 0.1 0-0.8 10 ^3/uL Basophils # (Auto) 0 0-0.2 10 ^3/uL Nucleated Red Blood Cells 0.2 % Sodium Level 140 136-145 mmol/L Potassium Level 3.9 3.5-5.1 mmol/L Chloride Level 107 98-107 mmol/L Carbon Dioxide Level 28 20-31 mmol/L Anion Gap 5 5-15 Blood Urea Nitrogen 15 # 9-23 mg/dL Creatinine 0.93 0.550-1.02 mg/dL Glomerular Filtration Rate Calc 70 >90 mL/min BUN/Creatinine Ratio 16.1 10.0-20.0 Serum Glucose 82 74-106 mg/dL Calcium Level 8.7 8.7-10.4 mg/dL POC Glucose 77 70-106 mg/dl Prothrombin Time 13.5 H 9.3-11.8 sec Prothrombin Time INR 1.31 H 0.9-1.15 Activated Partial Thromboplast Time 30.3 24.5-34.5 SEC Magnesium Level 2.0 1.6-2.6 mg/dL Total Bilirubin 0.4 0.2-1.0 mg/dL Aspartate Amino Transferase (AST) 145 H 13-40 U/L Alanine Aminotransferase (ALT) 180 H 7-40 U/L Alkaline Phosphatase 194 H 46-116 U/L Troponin I High Sensitivity 6 </=34 ng/L B-Type Natriuretic Peptide 32.50 0-100 pg/mL Total Protein 5.4 L 5.7-8.2 g/dL Albumin 3.7 3.2-4.8 g/dL Assessment Acute multiple strokes Acute left arm weakness secondary to acute stroke Chronic strokes x2 Multiple stroke risk factors To rule out Sleep-related breathing disorder Plan/Recommendation Monitoring Supportive treatment Telemetry Lipitor profile UDS Carotid Doppler Aspirin 81 mg daily Lipitor 80 mg daily She is to discuss with her family Re: Sleep symptoms I have discussed with cardiology Progress: Poor This medical document was created using an electronic medical record system with Poikos dictation system. Although this document has been carefully reviewed, there may still be some phonetic and typographical errors. These areas are purely typographical due to imperfections of the software programs, and do not reflect any compromise in the patient's medical care. Plan discussed with: Patient, Other BISI LOVELACE MD Jul 10, 2024 09:34
[2024-07-10 09:55] LABS: Triglycerides 137 mg/dL (< 150)
[2024-07-10 09:56] LABS: LDL Cholesterol 37 mg/dL (< 100)
[2024-07-10 09:57] LABS: Cholesterol 89 mg/dL (< 200)
[2024-07-10 09:58] LABS: HDL Cholesterol 31 mg/dL (40-59)
--- NOTE | 2024-07-10 10:06 | DVHINCON2 ---
Date Seen: Jul 10, 2024 Referring Physician MD Chaitanya Reason for Consultation ELLEN History of Present Illness This is a pleasant 59-year-old Slovenian-speaking mostly female who presented to the emergency room with a chief complaint of right hand numbness. The patient presented with complaints of right hand numbness and right-sided hemiparesis prompting her to seek further medical attention. She has been diagnosed with an acute stroke including acute cortical infarcts in the bilateral parietal and left frontal lobe. She has been evaluated by the Neurology team requesting a transesophageal echocardiogram to rule out cardioembolic source. The patient underwent a 12 lead electrocardiogram revealing a normal sinus rhythm. Baseline troponin level is negative. Of note, the patient was recently prescribed Eliquis but denies any interventional procedures such as a ELLEN or tachyarrhythmias being diagnosed. Significant medical history includes recently diagnosed acute CVA at [facility] last week, history of previous CVA a year ago, hypertension, insulin-dependent diabetes mellitus, dyslipidemia, GERD, and obesity. Past Medical History Past medical history reviewed. No other significant than mentioned above. Past Surgical History Past surgical history reviewed. No other significant than mentioned above. Family History: Cardiovascular disease G8 FATHER Diabetes mellitus G8 MOTHER Hypercholesterolemia Hypertension G8 MOTHER G8 FATHER Family History Family history reviewed. Social History Denies the use of illicit drugs, alcohol, or tobacco use. Allergies: Coded Allergies: NO KNOWN ALLERGIES (Unverified , 07/09/24) Home Meds Unable to Obtain Active Prescriptions or Reported Meds Home Meds Home medications reviewed. Current Medications Current Medications Medications (Trade) Dose Ordered Sig/Kelsey Route PRN Reason Start Time Stop Time Status Last Admin Aspirin 81 mg DAILY PO 07/10/24 10:00 Atorvastatin Calcium (Lipitor) 80 mg HS PO 07/09/24 22:00 07/09/24 21:35 Furosemide (Lasix Tablet) 40 mg DAILY PO 07/10/24 10:00 Empaglifozin (Jardiance) 10 mg DAILY PO 07/10/24 10:00 Diagnostic Test (Pha) (Accu-Chek Comfort Curve T) 1 strip ACHS 07/09/24 22:00 07/10/24 06:19 Insulin Human Regular (InsuLIN R) ACHS SC 07/09/24 22:00 07/09/24 21:46 Dextrose 50 ml UD PRN IV Blood Sugar LESS THAN 60 07/09/24 18:30 Ondansetron HCl (Zofran) 4 mg Q4HP PRN IV NAUSEA / VOMITING 07/09/24 18:30 Review of Systems Constitutional: No symptom reported Ears, Nose, & Throat: No symptom reported Eyes: No symptom reported Neurological: Right-sided hemiparesis Pulmonary/Respiratory: No symptom reported Cardiovascular: No symptom reported Gastrointestinal: No symptom reported Genitourinary: No symptom reported Musculoskeletal: No symptom reported Skin: No symptom reported Psychiatric: No symptom reported Endocrine: No symptom reported Hemotologic/Lymphatic: No symptom reported Vital Signs Vital Signs Date Time Temp Pulse Resp B/P (MAP) Pulse Ox O2 Delivery O2 Flow Rate FiO2 07/10/24 09:00 98.2 87 18 144/54 (84) 96 98.2 07/10/24 01:32 Nasal Cannula* 2 28 Physical Exam General Appearance: Cooperative. Well developed. Obese. In no acute distress Head Exam: Normal inspection Neck Exam: Normal inspection. Non-tender. Normal alignment Pulmonary/Respiratory: Chest non-tender. Clear bilateral breath sounds Cardiovascular/Chest: Regular rate and rhythm. S1, S2. NSR. No murmurs. No JVD. Peripheral Pulses: 2+ Radial (R). 2+ Radial (L). 2+ Pedal (R). 2+ Pedal (L) Abdominal Exam: Normal bowel sounds. Soft. Ankle Exam: Negative ankle edema Lower extremities: Negative lower extremity edema Neuro/Mental Status: A&O x4. Coherent. Right facial droop, right-sided hemiparesis Thoughts/Psych: Normal thought pattern. Appropriate mood and affect. Good judgement and insight Appearance: In no acute distress Skin Exam: Normal inspection. Normal color. Warm. Dry Labs/Diagnostic Data Labs Test 07/10/24 07:05 07/10/24 06:06 07/09/24 15:15 Range/Units White Blood Count 8.5 4.4-10.8 10^3/uL Red Blood Count 3.22 L 4.0-5.20 10^6/uL Hemoglobin 10.8 L 12.2-16.2 g/dL Hematocrit 32.5 #L 36.0-46.0 % Mean Corpuscular Volume 101.0 H 80.0-100.0 fL Mean Corpuscular Hemoglobin 33.4 H 28.0-32.0 pg Mean Corpuscular Hemoglobin Concent 33.1 32.0-36.0 g/dL Red Cell Distribution Width 19.8 H 11.8-14.3 % Platelet Count 265 140-450 10^3/uL Mean Platelet Volume 7.8 6.9-10.8 fL Neutrophils (%) (Auto) 87.8 H 37.0-80.0 % Lymphocytes (%) (Auto) 6.4 L 10.0-50.0 % Monocytes (%) (Auto) 4.1 0.0-12.0 % Eosinophils (%) (Auto) 1.6 0.0-7.0 % Basophils (%) (Auto) 0.1 0.0-2.0 % Neutrophils # (Auto) 7.5 1.6-8.6 10 ^3/uL Lymphocytes # (Auto) 0.5 0.4-5.4 10 ^3/uL Monocytes # (Auto) 0.4 0-1.3 10 ^3/uL Eosinophils # (Auto) 0.1 0-0.8 10 ^3/uL Basophils # (Auto) 0 0-0.2 10 ^3/uL Nucleated Red Blood Cells 0.2 % Sodium Level 140 136-145 mmol/L Potassium Level 3.9 3.5-5.1 mmol/L Chloride Level 107 98-107 mmol/L Carbon Dioxide Level 28 20-31 mmol/L Anion Gap 5 5-15 Blood Urea Nitrogen 15 # 9-23 mg/dL Creatinine 0.93 0.550-1.02 mg/dL Glomerular Filtration Rate Calc 70 >90 mL/min BUN/Creatinine Ratio 16.1 10.0-20.0 Serum Glucose 82 74-106 mg/dL Calcium Level 8.7 8.7-10.4 mg/dL Triglycerides Level 137 < 150 mg/dL Cholesterol Level 89 < 200 mg/dL LDL Cholesterol 37 < 100 mg/dL HDL Cholesterol 31 L 40-59 mg/dL POC Glucose 77 70-106 mg/dl Prothrombin Time 13.5 H 9.3-11.8 sec Prothrombin Time INR 1.31 H 0.9-1.15 Activated Partial Thromboplast Time 30.3 24.5-34.5 SEC Magnesium Level 2.0 1.6-2.6 mg/dL Total Bilirubin 0.4 0.2-1.0 mg/dL Aspartate Amino Transferase (AST) 145 H 13-40 U/L Alanine Aminotransferase (ALT) 180 H 7-40 U/L Alkaline Phosphatase 194 H 46-116 U/L Troponin I High Sensitivity 6 </=34 ng/L B-Type Natriuretic Peptide 32.50 0-100 pg/mL Total Protein 5.4 L 5.7-8.2 g/dL Albumin 3.7 3.2-4.8 g/dL Assessment Acute CVA rule out cardioembolic source Insulin-dependent diabetes mellitus Hypertension Dyslipidemia GERD Obesity Plan/Recommendation (Dr. Walls) The patient with an acute CVA we will undergo a transesophageal echocardiogram at 1st available. All risks and benefits of the procedure were discussed with the patient who agrees to proceed with intervention. In the meantime, transferred to telemetry to rule out any tachyarrhythmias. She was recently prescribed Eliquis on 07/02/24 for unknown diagnosis. We recommend continuation given recent CVA with treatment at [facility]. Monitor ECG changes and notify. Thank you for allowing us to participate in this patient's care. Please call if you have any questions or concerns. This medical document was created using an electronic medical record system with voice recognition software and computerized dictation system. Although this document has been carefully reviewed, there might still be some phonetic and typographical errors. Occasional wrong-word or ``sound-alike substitutions may have occurred due to the inherent limitations of voice recognition software. These areas are purely typographical due to imperfections of the software programs and do not reflect any compromise in the patient's medical care. Please read the chart carefully and recognize, using context, where these substitutions have occurred. Plan discussed with: Patient, Other NYHA Physical activity limitations: NA Date of Service: Jul 10, 2024 Billing Provider: KADEEM WALLS MD Cardiology Common Codes: [id number] INP/OBS CARE (High) DURANTTIMMY REESE STUDENT AFFAIRS VICE PRESIDENT Jul 10, 2024 10:06
[2024-07-10] MEDS: ASPirin 81 mg TAB PO SCH (11:16)
[2024-07-10] MEDS: EMPAGLIFLOZIN 10 MG TAB PO SCH (11:16)
[2024-07-10] MEDS: FUROSEMIDE 40 MG TAB PO SCH (11:17)
--- NOTE | 2024-07-10 12:57 | DVH ---
Carotid Duplex Date: 07/10/2024 11:26 AM Clinical History: Stroke workup Comparison: None Technique: Duplex Doppler evaluation of the extracranial carotid and vertebral arteries including color Doppler and spectral/pulsed waveform analysis was performed. Findings: RIGHT SIDE: The peak systolic velocities are 44 cm/s in the distal CCA and 35 cm/s in the proximal ICA.The ICA/CC A ratio is 0.8. There is severe atherosclerotic vascular disease in the right carotid bulb. There is decreased flow in the mid internal carotid artery for which short segment occlusion can not be exclud ed. The external carotid artery is patent with peak systolic velocity of 220 cm/s proximally. There is appropriate antegrade flow in the right vertebral artery. LEFT SIDE: The peak systolic velocities are 49 cm/s in the distal CCA and 66 cm/s in the proximal ICA.. The ICA /CCA ratio is less than 2. The external carotid artery is patent with peak systolic velocity of 105 cm/s proximally. There is appropriate antegrade flow in the left vertebral artery. There is severe atherosclerotic vas cular disease of the left internal carotid artery. IMPRESSION: There is severe atherosclerotic vascular disease in the right carotid bulb . There is decreased flow in the mid internal carotid artery for which short segment occlusion can not be excluded.
--- NOTE | 2024-07-10 14:02 | DVHPN2 ---
Assessment/Plan Assessment/Plan Progress note 59 F with HTN IDDM HLD obesity and old CVA w/o residual admitted as a stroke code. NIHSS on my assessment was 2 for facial droop. 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 Follows with primary care in [facility]. Reported medication compliance, no tobacco or alcohol use. 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
[2024-07-10] MEDS ORDERED: PRED10TA PO (14:26)
[2024-07-10] MEDS: IOHEXOL 350 MG/ML 100ML IJ ONE (15:46)
--- NOTE | 2024-07-10 16:31 | DVH ---
EXAM: CT ANGIO HEAD/NECK INDICATION: R/O STENOSIS EXAM DATE: 07/10/2024 03:59 PM COMPARISON: None TECHNIQUE: A noncontrast dataset was obtained. Subsequently, a volumetric data acquisition of the h ead and neck was obtained during the arterial phase of enhancement. A total of 60 mL of Omnipaque 350 was administered intravenously. One or more of the following radiation dose reduction techniques wer e used for this examination: automated exposure control, adjustment of the mA and/or kV according to patient size, use of iterative reconstruction technique. 3-D postprocessing is performed by technologist including MIP imaging Determination of the degree of stenosis in the internal carotid arteries is obtained using measureme nts of distal internal carotid diameter (directly or indirectly) as the denominator for stenosis nati urement. The method utilized is similar to that utilized in the [place] Symptomatic Carotid E ndarterectomy Trial (NASCET) method. If the degree of stenosis is greater than 30%, the actual percen tage stenosis is given in the body of the report. Radiation Dose Information: CT Dose: CTDI volume is 23.29 mGy. Dose-length product is 951.33 mGy*cm Findings: Neck: The aortic arch and great vessels are within normal limits. The common carotid arteries, carotid bifu rcation, internal and external carotid arteries are within normal limits. Vertebral arteries are with in normal limits, with right dominant. No evidence of aneurysm, dissection, or stenosis. The pharynx and upper airway appear normal with no evidence of stricture or focal lesion. No evidence of cervical lymphadenopathy. The thyroid, submandibular, and parotid glands appear normal. Osseous structures and lung apices appear unremarkable. Brain: Intracranial Anterior Circulation: The RIGHT anterior circulation including the right internal carotid artery, middle cerebral artery, a nd anterior cerebral artery demonstrates no abnormality. The LEFT anterior circulation including the left internal carotid artery, middle cerebral artery, and anterior cerebral artery demonstrates no abnormality. The anterior communicating artery is unremarkable. No posterior communicating arteries are identified. Vertebrobasilar Circulation: The basilar artery is unremarkable. The RIGHT posterior cerebral artery, superior cerebellar artery, and posterior inferior cerebellar ar vonnie demonstrate no abnormality. The LEFT posterior cerebral artery, superior cerebellar artery, and posterior inferior cerebellar art gricelda demonstrate no abnormality. Other: The visualized dural sinuses and intradural venous system are unremarkable. No evidence of intracranial mass, mass effect, or abnormal enhancement. The skull base, calvaria, orbits, and overlying soft tissues are intact. The paranasal sinuses, masto id air cells, and middle ear cavities are clear and well aerated. Impression: 1. No evidence of aneurysm, dissection, or stenosis.
[2024-07-10] MEDS: GABAPENTIN 300 MG CAP PO SCH (22:35)
[2024-07-10] MEDS: ACETAMINOPHEN 325 MG TAB PO SCH (22:35)
[2024-07-10] MEDS: ENOXAPARIN SOD 80 MG/0.8ML SYRINGE SC SCH (22:36)
[2024-07-11] VITALS (12 sets, daily range): BP systolic 92–139; BP diastolic 45–89; PULSE 82–100; RESP 16–24; TEMP 97.9–99.7; O2SAT 94–100
[2024-07-11] MEDS: PANTOPRAZOLE 40 MG TAB PO SCH (05:43)
[2024-07-11 07:29] LABS: Basophils # (auto) 0 10 ^3/uL (0-0.2); Basophils % (auto) 0.4 % (0.0-2.0); Eosinophils # (auto) 0.2 10 ^3/uL (0-0.8); Eosinophils % (auto) 3.6 % (0.0-7.0); Hematocrit 34.7 % (36.0-46.0); Hemoglobin 11.2 g/dL (12.2-16.2); Lymphocytes # (auto) 0.6 10 ^3/uL (0.4-5.4); Lymphocytes % (auto) 10.4 % (10.0-50.0); Mean Corpuscular Hemoglobin 32.9 pg (28.0-32.0); Mean Corpuscular Hgb Conc. 32.4 g/dL (32.0-36.0); Mean Corpuscular Volume 101.6 fL (80.0-100.0); Monocytes # (auto) 0.3 10 ^3/uL (0-1.3); Monocytes % (auto) 5.5 % (0.0-12.0); Neutrophils # (auto) 4.9 10 ^3/uL (1.6-8.6); Neutrophils % (auto) 80.1 % (37.0-80.0); Nucleated Red Blood Cells % 0.1 %; Platelet Count (auto) 242 10^3/uL (140-450); Red Blood Cells 3.42 10^6/uL (4.0-5.20); White Blood Cell 6.1 10^3/uL (4.4-10.8)
[2024-07-11 08:02] LABS: Albumin 3.6 g/dL (3.2-4.8); Anion Gap 9 (5-15); Blood Urea Nitrogen 12 mg/dL (9-23); Carbon Dioxide 27 mmol/L (20-31); Chloride 103 mmol/L (98-107); Glucose 101 mg/dL (74-106); Magnesium 2.1 mg/dL (1.6-2.6); Sodium 139 mmol/L (136-145)
[2024-07-11 08:03] LABS: Alanine Aminotransferase 112 U/L (7-40); Alkaline Phosphatase 119 U/L (46-116); Aspartate Aminotransferase 74 U/L (13-40); Bilirubin, Total 0.7 mg/dL (0.2-1.0); Phosphorus 4.8 mg/dL (2.4-5.1); Total Protein 5.4 g/dL (5.7-8.2)
[2024-07-11] MEDS: MIDAZOLAM HCL 2MG/2ML 2ml VIAL (1mg/ml) IV ONE (09:45)
[2024-07-11] MEDS: LIDOCAINE VISCOUS 2% 15ML UD PO ONE (09:45)
[2024-07-11] MEDS: fentaNYL CITRATE 100 MCG/2 ML VL IV ONE (09:45)
[2024-07-11] MEDS: predniSONE 5 MG TAB PO SCH (10:00)
[2024-07-11] MEDS: MIDAZOLAM HCL 2MG/2ML 2ml VIAL (1mg/ml) ONE (12:03)
--- NOTE | 2024-07-11 14:31 | DVHPN2 ---
Assessment/Plan Assessment/Plan Progress note 59 F with HTN IDDM HLD obesity and old CVA w/o residual admitted as a stroke code. NIHSS on my assessment was 2 for facial droop. 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 Follows with primary care in [facility]. Reported medication compliance, no tobacco or alcohol use. seen today during rounds NIHSS 2, pending ELLEN. 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 ELLEN neuro consult appreciated cardio consult appreciated CTA head neck diet cardiac, diabetic dvt ppx hold Plan discussed with: Other My Orders Orders - ALICE VYAS MD Procedure Category Date Status Time Speech Request ST 07/10/24 Transmitted 14:41 Pt Request For Service PT 07/10/24 Logged 14:41 Regular Diet DIET 07/10/24 Transmitted Dinner Acetaminophen Tablet PHA 07/10/24 In Process (Tylenol Tablet) 22:00 Gabapentin Capsule PHA 07/10/24 In Process (Neurontin Capsule) 22:00 Pantoprazole Tablet PHA 07/11/24 In Process (Protonix Tablet) 06:00 Prednisone Tablet PHA 07/11/24 In Process 10:00 Enoxaparin Sodium PHA 07/10/24 In Process (Lovenox) 22:00 Communication Order ORDERS 07/11/24 Transmitted 02:21 * Windows And Doors Installer CONS 07/11/24 Transmitted Consult Date of Service: Jul 11, 2024 Billing Provider: ALICE VYAS MD Common Visit Codes: [id number] INP/OBS CARE(HIGH) ALICE VYAS MD Jul 11, 2024 14:31
--- NOTE | 2024-07-11 16:43 | DVHOP2 ---
Operative Report Operative Report CARDIAC SOIL SURVEYOR PROCEDURE REPORT [place], [place] Date of Service: 07/11/24 Vinyl Hanger: Yuridia Graves MD PROCEDURES PERFORMED: trans esophageal echocardiogram, conscious sedation <15 mins, doppler assesment complete ELLEN, DC cardioversion PREOPERATIVE DIAGNOSES: cva eval multifocal POSTOP DIAGNOSIS: non cardioembolic cause of cva DESCRIPTION OF PROCEDURE: The patient or appropriate family signed informed consent understanding the risks, benefits and alternatives of the procedure, they wished to proceed. The patient was brought to the cardiac scientific laboratory supervisor in n.p.o. state. the patient was given 15 ml of oral viscous lidocaine. the patient was placed in a left lateral decubitus position with bite block in mouth. NExt conscious sedation was administered per scientific laboratory supervisor protocol with _1_ mg of versed and _50__ mcg of fentanyl. Next a ELLEN probe was advanced to the mid esophagus with ease and multiple planar images obtained. At the completion of the procedure , probe was removed and there were no immediate complications. FINDINGS: Left Ventricle: Normal LV size and function, LVEF estimated at 60% Right Ventricle: NOrmal RV size and function Left atrium: enlarged, LA mild Right atrium: normal RA Left atrial appendage: no thrombus noted, Aortic valve: trileaflet valve, no severe or AI Mitral Valve: structurally normal, mild to moderate mitral regurg, no MS Tricuspid Valve: trace to mild tricuspid regurgitaiton, no TS Pulmonic Valve: strucutrally normal, no severe PIor PS Interatrial septum: negative color flow for R to L shunt, negative bubble study Ascending aorta: no severe plaquing YURIDIA GRAVES MD Jul 11, 2024 16:43
[2024-07-12] VITALS (8 sets, daily range): BP systolic 110–146; BP diastolic 50–67; PULSE 83–97; RESP 16–19; TEMP 97.6–98.7; O2SAT 95–100
[2024-07-12 06:37] LABS: Basophils # (auto) 0 10 ^3/uL (0-0.2); Basophils % (auto) 0.4 % (0.0-2.0); Eosinophils # (auto) 0.2 10 ^3/uL (0-0.8); Eosinophils % (auto) 4.2 % (0.0-7.0); Hematocrit 34.6 % (36.0-46.0); Hemoglobin 11.5 g/dL (12.2-16.2); Lymphocytes # (auto) 0.5 10 ^3/uL (0.4-5.4); Mean Corpuscular Hemoglobin 33.2 pg (28.0-32.0); Mean Corpuscular Hgb Conc. 33.3 g/dL (32.0-36.0); Mean Corpuscular Volume 99.7 fL (80.0-100.0); Monocytes # (auto) 0.4 10 ^3/uL (0-1.3); Monocytes % (auto) 7.3 % (0.0-12.0); Neutrophils # (auto) 3.8 10 ^3/uL (1.6-8.6); Neutrophils % (auto) 77.1 % (37.0-80.0); Nucleated Red Blood Cells % 0.1 %; Platelet Count (auto) 226 10^3/uL (140-450); Red Blood Cells 3.47 10^6/uL (4.0-5.20); Red Cell Distribution Width 19.6 % (11.8-14.3); White Blood Cell 4.9 10^3/uL (4.4-10.8)
[2024-07-12 06:51] LABS: Anion Gap 7 (5-15); Carbon Dioxide 28 mmol/L (20-31); Chloride 105 mmol/L (98-107); Potassium 4.1 mmol/L (3.5-5.1); Sodium 140 mmol/L (136-145)
[2024-07-12 06:52] LABS: Calcium 9.1 mg/dL (8.7-10.4)
[2024-07-12 06:57] LABS: BUN/Creatinine Ratio 14.4 (10.0-20.0); Blood Urea Nitrogen 14 mg/dL (9-23)
[2024-07-12 06:58] LABS: Glucose 131 mg/dL (74-106)
--- NOTE | 2024-07-12 12:21 | DVHPN2 ---
Reviewed: Care Plan, H&P, Labs, Medications, Previous Orders, Radiology Changes from previous H/P or p: No Changes Objective Vitals Vital Signs Date Time Temp Pulse Resp B/P (MAP) Pulse Ox O2 Delivery O2 Flow Rate FiO2 07/12/24 08:32 98.2 90 18 112/50 (70) 95 98.2 07/12/24 08:30 Nasal Cannula* 2 28 Intake/Output Intake and Output 07/12/24 07:00 Intake Total 565 ml Balance 565 ml Intake Oral 565 ml # Voids 8 Medications Current Medications Medications Dose Ordered Sig/Kelsey Route Start Time Stop Time Status Last Admin Dose Admin Aspirin 81 mg DAILY PO 07/10/24 10:00 07/12/24 09:56 81 MG Atorvastatin Calcium 80 mg HS PO 07/09/24 22:00 07/11/24 21:59 80 MG Empaglifozin 10 mg DAILY PO 07/10/24 10:00 07/12/24 09:56 10 MG Diagnostic Test (Pha) 1 strip ACHS 07/09/24 22:00 07/12/24 11:59 1 STRIP Insulin Human Regular ACHS SC 07/09/24 22:00 07/12/24 12:06 4 UNITS Dextrose 50 ml UD PRN IV 07/09/24 18:30 Ondansetron HCl 4 mg Q4HP PRN IV 07/09/24 18:30 Enoxaparin Sodium 80 mg Q12HR SC 07/10/24 22:00 07/12/24 09:56 80 MG Acetaminophen 650 mg Q8HR PO 07/10/24 22:00 07/12/24 06:11 650 MG Gabapentin 300 mg TID PO 07/10/24 22:00 07/12/24 06:11 300 MG Pantoprazole Sodium 40 mg DAILY@0600 PO 07/11/24 06:00 07/12/24 06:10 40 MG Prednisone 10 mg DAILY PO 07/11/24 10:00 07/12/24 09:56 10 MG Laboratory Results Laboratory Tests 07/12/24 06:00 Chemistry Test 07/12/24 06:00 Calcium Level 9.1 mg/dL (8.7-10.4) Labs and/or images reviewed: Labs reviewed by me, Image(s) reviewed by me Assessment/Plan Assessment/Plan Covering for Dr Gonzales Acute cortical parietal bilateral and left frontal infarct Right-sided weakness Old right basal ganglia infarct IDDM Hypertension Morbid obesity HLD ELLEN by Dr. Moss normal Current management and physical therapy Plan discussed with: Patient Date of Service: Jul 12, 2024 Billing Provider: HAIR KOWALSKI MD Common Visit Codes: [id number] INP/OBS CARE(HIGH) HAIR KOWALSKI MD Jul 12, 2024 12:21
[2024-07-13] VITALS (8 sets, daily range): BP systolic 120–148; BP diastolic 58–89; PULSE 78–99; RESP 17–20; TEMP 97.6–98.4; O2SAT 96–99
--- NOTE | 2024-07-13 11:03 | DVHPN2 ---
Reviewed: Care Plan, H&P, Labs, Medications, Previous Orders, Radiology Changes from previous H/P or p: No Changes Objective Vitals Vital Signs Date Time Temp Pulse Resp B/P (MAP) Pulse Ox O2 Delivery O2 Flow Rate FiO2 07/13/24 09:00 98.1 88 18 148/89 (108) 97 98.1 07/12/24 20:00 Nasal Cannula* 2 28 Intake/Output Intake and Output 07/13/24 07:00 Intake Total 960 ml Output Total 500 ml Balance 460 ml Intake Oral 960 ml Output Urine Total 500 ml # Voids 1 # Bowel Movements 1 Medications Current Medications Medications Dose Ordered Sig/Kelsey Route Start Time Stop Time Status Last Admin Dose Admin Aspirin 81 mg DAILY PO 07/10/24 10:00 07/13/24 10:29 81 MG Atorvastatin Calcium 80 mg HS PO 07/09/24 22:00 07/12/24 21:58 80 MG Empaglifozin 10 mg DAILY PO 07/10/24 10:00 07/13/24 10:29 10 MG Diagnostic Test (Pha) 1 strip ACHS 07/09/24 22:00 07/13/24 06:29 1 STRIP Insulin Human Regular ACHS SC 07/09/24 22:00 07/12/24 21:34 6 UNITS Dextrose 50 ml UD PRN IV 07/09/24 18:30 Ondansetron HCl 4 mg Q4HP PRN IV 07/09/24 18:30 Enoxaparin Sodium 80 mg Q12HR SC 07/10/24 22:00 07/13/24 10:29 80 MG Acetaminophen 650 mg Q8HR PO 07/10/24 22:00 07/13/24 06:28 650 MG Gabapentin 300 mg TID PO 07/10/24 22:00 07/13/24 06:28 300 MG Pantoprazole Sodium 40 mg DAILY@0600 PO 07/11/24 06:00 07/13/24 06:28 40 MG Prednisone 10 mg DAILY PO 07/11/24 10:00 07/13/24 10:29 10 MG Laboratory Results Laboratory Tests 07/12/24 06:00 Labs and/or images reviewed: Labs reviewed by me, Image(s) reviewed by me Assessment/Plan Assessment/Plan Covering for Dr Gonzales Acute left parietal infarct Acute Right-sided weakness Old right basal ganglia infarct IDDM Hypertension Morbid obesity HLD ELLEN by Dr. Ajay banks Continue Current management and physical therapy Plan discussed with: Patient Date of Service: Jul 13, 2024 Billing Provider: HAIR KOWALSKI MD Common Visit Codes: [id number] INP/OBS CARE(HIGH) HAIR KOWALSKI MD Jul 13, 2024 11:03
[2024-07-14 01:00] VITALS: BP 142/63; PULSE 83; RESP 18; TEMP 99.1; O2SAT 99
[2024-07-14 05:00] VITALS: BP 156/62; PULSE 80; RESP 19; TEMP 97.9; O2SAT 98
[2024-07-14 08:00] VITALS: PULSE 75; O2SAT 98
[2024-07-14 08:52] VITALS: BP 137/69; PULSE 76; RESP 16; TEMP 98.2; O2SAT 98
[2024-07-14] MEDS ORDERED: EMPA1TAB PO (12:35)
[2024-07-14] MEDS ORDERED: ATOR80TA PO (12:35)
[2024-07-14] MEDS ORDERED: GABA-1250 PO (12:35)
[2024-07-14] MEDS ORDERED: ASPI-628 PO (12:35)
--- NOTE | 2024-07-14 12:35 | DVHPN2 ---
Reviewed: Care Plan, H&P, Labs, Medications, Previous Orders, Radiology Changes from previous H/P or p: No Changes Objective Vitals Vital Signs Date Time Temp Pulse Resp B/P (MAP) Pulse Ox O2 Delivery O2 Flow Rate FiO2 07/14/24 08:52 98.2 76 16 137/69 (91) 98 98.2 07/14/24 08:00 Room Air* 0 21 Intake/Output Intake and Output 07/14/24 07:00 Intake Total 976 ml Output Total 550 ml Balance 426 ml Intake Oral 976 ml Output Urine Total 550 ml # Voids 1 Medications Current Medications Medications Dose Ordered Sig/Kelsey Route Start Time Stop Time Status Last Admin Dose Admin Aspirin 81 mg DAILY PO 07/10/24 10:00 07/14/24 10:07 81 MG Atorvastatin Calcium 80 mg HS PO 07/09/24 22:00 07/13/24 21:29 80 MG Empaglifozin 10 mg DAILY PO 07/10/24 10:00 07/14/24 10:07 10 MG Diagnostic Test (Pha) 1 strip ACHS 07/09/24 22:00 07/14/24 11:30 1 STRIP Insulin Human Regular ACHS SC 07/09/24 22:00 07/14/24 11:30 4 UNITS Dextrose 50 ml UD PRN IV 07/09/24 18:30 Ondansetron HCl 4 mg Q4HP PRN IV 07/09/24 18:30 Enoxaparin Sodium 80 mg Q12HR SC 07/10/24 22:00 07/14/24 10:07 80 MG Acetaminophen 650 mg Q8HR PO 07/10/24 22:00 07/14/24 05:48 650 MG Gabapentin 300 mg TID PO 07/10/24 22:00 07/14/24 05:48 300 MG Pantoprazole Sodium 40 mg DAILY@0600 PO 07/11/24 06:00 07/14/24 05:48 40 MG Prednisone 10 mg DAILY PO 07/11/24 10:00 07/14/24 10:07 10 MG Laboratory Results Laboratory Tests 07/12/24 06:00 Labs and/or images reviewed: Labs reviewed by me, Image(s) reviewed by me Assessment/Plan Assessment/Plan Covering for Dr Gonzales Acute left parietal infarct Acute Right-sided weakness Old right basal ganglia infarct IDDM Hypertension Morbid obesity HLD ELLEN by Dr. Ajay banks Continue Current management and physical therapy Plan discussed with: Patient Date of Service: Jul 14, 2024 Billing Provider: HAIR KOWALSKI MD Common Visit Codes: [id number] INP/OBS CARE(HIGH) HAIR KOWALSKI MD Jul 14, 2024 12:35
--- NOTE | 2024-07-14 12:39 | DVHDS2 ---
Discharge Summary Date of Admission Jul 09, 2024 at 18:28 Date of Discharge: Jul 14, 2024 Admitting Diagnosis Right-sided weakness Wounds: None Labs/Diagnostic Data: Laboratory Results Test 07/14/24 11:18 07/12/24 06:00 07/11/24 06:08 07/10/24 07:05 POC Glucose 205 mg/dl (70-106) White Blood Count 4.9 10^3/uL (4.4-10.8) Red Blood Count 3.47 10^6/uL (4.0-5.20) Hemoglobin 11.5 g/dL (12.2-16.2) Hematocrit 34.6 % (36.0-46.0) Mean Corpuscular Volume 99.7 fL (80.0-100.0) Mean Corpuscular Hemoglobin 33.2 pg (28.0-32.0) Mean Corpuscular Hemoglobin Concent 33.3 g/dL (32.0-36.0) Red Cell Distribution Width 19.6 % (11.8-14.3) Platelet Count 226 10^3/uL (140-450) Mean Platelet Volume 8.0 fL (6.9-10.8) Neutrophils (%) (Auto) 77.1 % (37.0-80.0) Lymphocytes (%) (Auto) 11.0 % (10.0-50.0) Monocytes (%) (Auto) 7.3 % (0.0-12.0) Eosinophils (%) (Auto) 4.2 % (0.0-7.0) Basophils (%) (Auto) 0.4 % (0.0-2.0) Neutrophils # (Auto) 3.8 10 ^3/uL (1.6-8.6) Lymphocytes # (Auto) 0.5 10 ^3/uL (0.4-5.4) Monocytes # (Auto) 0.4 10 ^3/uL (0-1.3) Eosinophils # (Auto) 0.2 10 ^3/uL (0-0.8) Basophils # (Auto) 0 10 ^3/uL (0-0.2) Nucleated Red Blood Cells 0.1 % Sodium Level 140 mmol/L (136-145) Potassium Level 4.1 mmol/L (3.5-5.1) Chloride Level 105 mmol/L (98-107) Carbon Dioxide Level 28 mmol/L (20-31) Anion Gap 7 (5-15) Blood Urea Nitrogen 14 mg/dL (9-23) Creatinine 0.97 mg/dL (0.550-1.02) Glomerular Filtration Rate Calc 66 mL/min (>90) BUN/Creatinine Ratio 14.4 (10.0-20.0) Serum Glucose 131 mg/dL (74-106) Calcium Level 9.1 mg/dL (8.7-10.4) Phosphorus Level 4.8 mg/dL (2.4-5.1) Magnesium Level 2.1 mg/dL (1.6-2.6) Total Bilirubin 0.7 mg/dL (0.2-1.0) Aspartate Amino Transferase (AST) 74 U/L (13-40) Alanine Aminotransferase (ALT) 112 U/L (7-40) Alkaline Phosphatase 119 U/L (46-116) Total Protein 5.4 g/dL (5.7-8.2) Albumin 3.6 g/dL (3.2-4.8) Hemoglobin A1c 10.5 % A1C (<5.7) Triglycerides Level 137 mg/dL (< 150) Cholesterol Level 89 mg/dL (< 200) LDL Cholesterol 37 mg/dL (< 100) HDL Cholesterol 31 mg/dL (40-59) Thyroid Stimulating Hormone (TSH) 1.14 uIU/mL (0.55-4.78) Test 07/09/24 15:15 Prothrombin Time 13.5 sec (9.3-11.8) Prothrombin Time INR 1.31 (0.9-1.15) Activated Partial Thromboplast Time 30.3 SEC (24.5-34.5) Troponin I High Sensitivity 6 ng/L (</=34) B-Type Natriuretic Peptide 32.50 pg/mL (0-100) Other Laboratory Tests 07/12/24 06:00 Brief Hx & Hospital Course: 59-year-old female with a history of multiple strokes multiple admissions at different hospitals came in complaining of acute right-sided weakness found to have acute left parietal ischemic infarct consistent with right-sided weakness also has old right basal ganglia infarct history of hypertension diabetes cholesterol. Seen by Neurology Dr. Tavares patient was placed on aspirin Lipitor Jardiance gabapentin and was continued home medications prednisone. Vincent by Dr. Moss was negative patient being discharged home. Prescription transmitted to the pharmacy. Patient does not qualify for home health because of insurance issue. at the bedside at the time of discharge and agreeable for the discharge plan. Consults/Reason for consult Neurology Dr. Tavares Operations or Procedures CT head without contrast Condition at Discharge: Fair Final Diagnosis/Problems List Acute left parietal infarct Acute Right-sided weakness Old right basal ganglia infarct IDDM Hypertension Morbid obesity HLD VINCENT by Dr. Ajay villalobos Discharge Disposition: Home Discharge Instruct/Medications Diet: Cardiac 2g Na,low cholest Activity: Light activity Follow Up/Referral: Follow up with your primary Dr Start taking new medications from today Medications: Aspirin Lipitor Jardiance Gabapentin Transmitted to pharmacy 39 (Time taken for discharge summary 39 minutes) Discharge Statement: "Patient was advised to return to the ER or call 911 if any headaches, dizziness, shortness of breath, chest pain, abdominal pain, bleeding, fevers, or worsening of medical condition. Patient was counseled about treatment plan, medications, possible side effects, patientverbalized understanding. All questions were answered to the best of my ability. This discharge took greater then 30 minutes in planning, reviewing documentation, counseling the patient, and discussing with other team members." ASSESSMENT ASSESSMENT Hospital Course Improved marginally Assessment Acute left parietal infarct Acute Right-sided weakness Old right basal ganglia infarct IDDM Hypertension Morbid obesity HLD VINCENT by Dr. Ajay villalobos Date of Service: Jul 14, 2024 Billing Provider: HAIR KOWALSKI MD Common Visit Codes: [id number] DISCH DAY >30min HAIR KOWALSKI MD Jul 14, 2024 12:39
[2024-07-14 13:00] VITALS: BP 142/54; PULSE 72; RESP 16; TEMP 98; O2SAT 98
[2024-07-14 15:03] VITALS: BP 142/52; PULSE 72; RESP 17; TEMP 98; O2SAT 97
== END 2024-07-14 16:15 | disposition home or self-care (01) | DRG 45 ==
LOC: ER 14:31 → OVERFLOW 18:28 → WEST WING 23:18 → TELE-WESTW 07-10 23:12
PROVIDERS: ADMIT Family Medicine; ATTEND Family Medicine
PROC: B246ZZ4 Ultrasonography of Right and Left Heart, Transesophageal (ICD-10-PCS; principal; 2024-07-11)
DX: I63.9 Cerebral infarction, unspecified (principal); E11.9 Type 2 diabetes mellitus without complications; I10 Essential (primary) hypertension; E66.01 Morbid (severe) obesity due to excess calories; K21.9 Gastro-esophageal reflux disease without esophagitis; E78.5 Hyperlipidemia, unspecified; R29.705 NIHSS score 5; R29.810 Facial weakness; G83.24 Monoplegia of upper limb affecting left nondominant side; Z79.4 Long term (current) use of insulin; Z79.82 Long term (current) use of aspirin; Z79.899 Other long term (current) drug therapy; Z82.49 Family history of ischemic heart disease and other diseases of the circulatory system; Z83.3 Family history of diabetes mellitus; Z68.33 Body mass index [BMI] 33.0-33.9, adult
CPT/HCPCS: 36415; 70450; 70496; 70498; 70551; 71045; 80048; 80053; 80061; 82962; 83036; 83735; 83880; 84100; 84443; 84484; 85025; 85610; 85730; 92610; 93005; 93312; 93886; 97110; 97116; 97163; 97530; 99152; 99291; G0378; J1815; J2250

== ENCOUNTER 2024-08-20 16:41 | Emergency (ER) | payer OTHER ==
[~2024-08-20] VITALS: Ht 152.4 cm; Wt 74.5 kg
[~2024-08-20 16:41] MED LIST: ASPI-628 PO; ATOR80TA PO; EMPA1TAB PO; GABA-1250 PO; PRED10TA PO
--- NOTE | 2024-08-20 18:43 | ED.PDOC ---
Musculoskeletal HPI Comments 59 year old female presents to ER with complaints of fall injury x 1 day. Patient reports she sustained a mechanical trip and fall over uneven pavement while walking into her doctors office using her walker at 2:40 p.m. prior to arrival to ER and landed on both her knees and has since been experiencing 6/10 bilateral knee pain. Notes she did "bump" her right facial cheek upon falling, denying head injury/LOC/facial pain. Patient presents to ER ambulatory with use of walker with 2 small 2cm abrasions noted to bilateral knees, alert and oriented x4, in no distress. Denies headache, neck pain, n/v, numbness/tingling, dizziness, hip pain or any further symptoms/complaints Chief Complaint: Fall Injury Time Seen by MD: 18:06 Primary Care Provider: [facility] Reviewed Notes: Nurses Notes, Medications, Allergies Allergies: Coded Allergies: NO KNOWN ALLERGIES (Unverified , 07/09/24) Home Meds Active Scripts Gabapentin (Gabapentin) 300 Mg Cap, 1 CAP PO TID, #90 CAP 5 Refills Prov:HAIR KOWALSKI MD 07/14/24 Empagliflozin (Jardiance) 10 Mg Tab, 10 MG PO DAILY, #90 TAB Prov:HAIR KOWALSKI MD 07/14/24 Atorvastatin Calcium (Lipitor) 80 Mg Tab, 1 TAB PO DAILY, #90 TAB 1 Refill Prov:HAIR KOWALSKI MD 07/14/24 Aspirin (Aspirin Adult Low Dose) 81 Mg Tab, 81 MG PO DAILY, #90 TAB Prov:HAIR KOWALSKI MD 07/14/24 Reported Medications Prednisone (Prednisone) 10 Mg Tab, 10 MG PO TID 07/10/24 Information Source: Patient Mode of Arrival: Ambulatory Past Medical History PAST MEDICAL HISTORY: CVA, DM, High Lipids, HTN Surgical History (Other): right leg surgery 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 Family History Family History: Unknown Social History Smoker: Non-Smoker Alcohol: Denies ETOH Use Drugs: Denies Drug Use Lives In: Home Constitutional: denies: chills, diaphoresis, fatigue, fever, malaise, sweats, weakness, others EENTM: denies: blurred vision, double vision, ear bleeding, ear discharge, ear drainage, ear pain, ear ringing, eye pain, eye redness, hearing loss, mouth linette n, mouth swelling, nasal discharge, nose bleeding, nose congestion, nose pain, photophobia, tearing, throat pain, throat swelling, voice changes, others Respiratory: denies: cough, hemoptysis, orthopnea, SOB at rest, shortness of breath, SOB with excertion, stridor, wheezing, others Cardiovascular: denies: chest pain, dizzy spells, diaphoresis, Dyspnea on exertion, edema, irregular heart beat, left arm pain, lightheadedness, palpitations, PND, syncope, others Gastrointestinal: denies: abdomen distended, abdominal pain, blood streaked bowels, constipated, diarrhea, dysphagia, difficulty swallowing, hematemesis, melena, nausea, poor appetite, poor fluid intake, rectal bleeding, rectal pain, vomiting, others Genitourinary: denies: abnormal vagina bleeding, burning, dyspareunia, dysuria, flank pain, frequency, hematuria, incontinence, pain, , vagina discharge, urgency, others Neurological: denies: dizziness, fainting, headache, left sided numbness, left sided weakness, numbness, paresthesia, pre-existing deficit, right sided numbness, right sided weakness, seizure, speech problems, tingling, tremors, weakness, others Musculoskeletal: reports: others (As stated in HPI) Integumetry: reports: others (As stated in HPI) Allergic/Immunocompromised: denies: Difficulty Healing, Frequent Infections, Hi ves, Itching, others Hematologic/Lymphatic: denies: anemia, blood clots, easy bleeding, easy bruising, swollen glands, others Endocrine: denies: excessive hunger, excessive sweating, excessive thirst, excessive urination, flushing, intolerance to cold, intolerance to heat, unexplained weight gain, unexplained weight loss, others Psychiatric: denies: anxiety, bipolar disorder, depression, hopeless, panic disorder, schizophrenia, sleepless, suicidal, others Physical Exam General Appearance: No Apparent Distress, Obese HEENT: Normal ENT Inspection, PERRL/EOMI, Pharynx Normal, TMs Normal, Other (No TTP/skin changes to face/scalp appreciated) Neck: Full Range of Motion, Non-Tender, Normal Respiratory: Chest Non-Tender, Lungs Clear, No Accessory Muscle Use, No Respiratory Distress, Normal Breath Sounds Cardiovascular: No Murmur, No Gallop, Regular Rate/Rhythm Breast Exam: Deferred Gastrointestinal: Non Tender, No Pulsatile Mass, Soft Genitalia: Deferred Pelvic: Deferred Rectal: Deferred Extremities: Normal capillary refill, Normal range of motion Musculoskeletal : Extremity Location: Knee (Two small abrasions 2 cm in size noted to bilateral anterior knees. No bony tenderness noted. 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 Was a procedure done?: No Sedation Sedation?: No Differential Diagnosis EXT Differential Diagnosis: Fracture, Dislocation, Neurovascular injury, Other (CLOSED HEAD INJURY) X-Ray, Labs, Meds, VS Vital Signs Date Time Temp Pulse Resp B/P (MAP) Pulse Ox O2 Delivery O2 Flow Rate FiO2 08/20/24 17:00 99.7 86 18 131/56 (81) 96 Patient neurovascularly intact, reported improvement in symptoms and in no distress prior to discharge Advised on rest/ no strenuous activity, elevation and alternate ice on/off as needed for pain Advised on continued use of walker at all times Advised to follow up with PCP in 1-2 days Patient alert and oriented x4 prior to discharge. Patient and patient's son verbalized understanding and agreeable with current plan of care Advised to return to ER immediately if symptoms worsen Time of 1ST Reevaluation: 18:20 Reevaluation 1ST: N/A Patient Education/Counseling: Diagnosis, Treatment, Prognosis, Need For Follow Up Family Education/Counseling: Diagnosis, Treatment, Prognosis, Need For Follow Up Departure 1 Departure Time of Disposition: 18:42 Impression: Primary Impression: Abrasion of both knees Disposition: HOME / SELF CARE / HOMELESS Condition: Stable Discharged With: Other (son) Critical Care Note Critical Care Time?: No Stability Stability form required: No Heart Score Heart Score: Heart Score Response (Comments) Value History N/A 0 EKG N/A 0 Age N/A 0 Risk Factors N/A 0 Troponin N/A 0 Total 0 KIMMIE MALDONADO Aug 20, 2024 18:43
[2024-08-20 18:51] VITALS: BP 128/60; PULSE 79; RESP 18; TEMP 99.5; O2SAT 96
== END 2024-08-20 18:59 | disposition home or self-care (01) ==
LOC: ER 16:41
DX: S80.212A Abrasion, left knee, initial encounter (principal); S80.211A Abrasion, right knee, initial encounter; E11.9 Type 2 diabetes mellitus without complications; I10 Essential (primary) hypertension; E78.5 Hyperlipidemia, unspecified; Z79.899 Other long term (current) drug therapy; Z79.82 Long term (current) use of aspirin; Z79.84 Long term (current) use of oral hypoglycemic drugs; Z79.52 Long term (current) use of systemic steroids; Z86.73 Personal history of transient ischemic attack (TIA), and cerebral infarction without residual deficits; W01.0XXA Fall on same level from slipping, tripping and stumbling without subsequent striking against object, initial encounter; Y93.01 Activity, walking, marching and hiking; Y92.89 Other specified places as the place of occurrence of the external cause; Y99.8 Other external cause status